=== PATIENT | female | born 1935 | race Caucasian/White ===

== ENCOUNTER 2016-09-10 08:20 | Emergency (ER) | payer OTHER ==
[~2016-09-10] VITALS: Ht 152.4 cm; Wt 69.0 kg
[~2016-09-10 08:20] MED LIST: ASPI81TA82 PO; BENZ100C4 PO; CALC600T34 PO; GUAI100S6 PO; HUMIBIDDM; LEVA750T PO; LEVO50TA4 PO; PRAV20 PO; PROT40TA PO; ZITH250T PO
[2016-09-10 08:24] VITALS: BP 153/76; PULSE 88; RESP 16; TEMP 97.8; O2SAT 96
--- NOTE | 2016-09-10 08:42 | PD ---
HPI Chief Complaint: Fall Time Seen by Provider: 08:35 Travel History International Travel<30 days: No Contact w/Intl Traveler<30days: No Traveled to known affect area: No History of Present Illness HPI The patient was seen and examined in the presence of the nurse. This patient complains of right shoulder pain. Yesterday she was gardening and tripped and fell and landed on her right shoulder. She has pain in that area. She did not strike her head. She has no head or neck pain. Severity is mild to moderate. No alleviating factors. PFSH Past Medical History Hx Anticoagulant Therapy: Yes (BABY ASA DAILY) Arthritis: Yes Cancer: No Cardiac Catheterization: Yes Cardiovascular Problems: Yes High Cholesterol: Yes Congestive Heart Failure: No Diabetes: No Diminished Hearing: No GERD: Yes Hepatitis: No Hiatal Hernia: No Hypertension: No Medical other: Yes Respiratory: Yes Immunizations Current: Yes Thyroid Disease: Yes Influenza Vaccination: Yes Past Surgical History Abdominal Surgery: Yes Cardiac Surgery: Yes (CARDIAC CATH) Coronary Artery Bypass Graft: No Gynecologic Surgery: Yes (HYSTERECTOMY ) Hysterectomy: Yes Pacemaker: No Other Surgery: Yes Family History Family Myocardial Infarction: Yes (FATHER AND BROTHER) Social History Alcohol Use: No Tobacco Use: No Substance Use: No Allergies-Medications (Allergen,Severity, Reaction): Coded Allergies: Meloxicam (Verified Allergy, Unknown, 09/10/16) Amoxicillin (Verified Adverse Reaction, Mild, diarrhea, 09/10/16) Gabapentin (Verified Adverse Reaction, Mild, shakes, 09/10/16) Reported Meds & Prescriptions Reported Meds & Active Scripts Active Reported Aleve Arthritis (Naproxen Sodium) 220 Mg Tab 220 Mg PO BID PRN Aspirin 81 (Aspirin) 81 Mg Tabdr 81 Mg PO DAILY Vitamin B12 (Cyanocobalamin) 500 Mcg Tab Unknown Dose PO DAILY Calcium (Calcium Carbonate) 600 Mg Tab 600 Mg PO DAILY Pravastatin 40 Mg Tab 40 Mg PO DAILY Pantoprazole (Pantoprazole Sodium) 40 Mg Tab 40 Mg PO DAILY Levothyroxine (Levothyroxine Sodium) 50 Mcg Tab 50 Mcg PO DAILY Review of Systems General / Constitutional: No: Fever Eyes: No: Visual changes HENT: No: Headaches Cardiovascular: No: Chest Pain or Discomfort Respiratory: No: Shortness of Breath Gastrointestinal: No: Abdominal Pain Genitourinary: No: Dysuria Musculoskeletal: Positive: Pain Skin: No Rash Neurologic: No: Weakness Psychiatric: No: Depression Endocrine: No: Polydipsia Hematologic/Lymphatic: No: Easy Bruising Physical Exam Narrative SKIN: Focused skin assessment reveals no rash or ulcers. Skin is warm and dry. Palpation shows no induration or nodules. Psych: Normal mood and affect. Normal insight and judgment. GASTROINTESTINAL: Abdomen soft, non-tender, nondistended. Positive bowel sounds. No hepato-splenomegaly, or palpable masses. No guarding. Right shoulder: Some tenderness at the humeral head is noted without bruising or swelling. Good range of motion. Neurovascularly intact right arm Data Data Last Documented VS Vital Signs Date Time Temp Pulse Resp B/P Pulse Ox O2 Delivery O2 Flow Rate FiO2 09/10/16 08:24 97.8 88 16 153/76 96 Orders Shoulder, Complete (>2vws) (09/10/16 ) [facility] Medical Decision Making Medical Screen Exam Complete: Yes Emergency Medical Condition: Yes Medical Record Reviewed: Yes Differential Diagnosis Contusion, fracture, dislocation Narrative Course I have reviewed the patient's electronic medical record. I reviewed her right shoulder x-rays which show some arthritic change without fracture or dislocation Supportive care discussed and gradual resolution is expected Diagnosis Primary Impression: Contusion of right shoulder, initial encounter Additional Instructions: The patient was advised to follow up with their physician and return if they worsen. Med/Other Pt SpecificInfo: Other Disposition: 01 DISCHARGE HOME Condition: Stable Luis Antonio Balbuena MD Sep 10, 2016 08:41
[2016-09-10] MEDS ORDERED: VITA500T49 PO (08:43)
[2016-09-10] MEDS ORDERED: ASPI-110 PO (08:43)
[2016-09-10] MEDS ORDERED: PANT40TA3 PO (08:43)
[2016-09-10] MEDS ORDERED: LEVO50TA4 PO (08:43)
[2016-09-10] MEDS ORDERED: PRAV40TA2 PO (08:43)
[2016-09-10] MEDS ORDERED: ALEV220T14 PO (08:43)
[2016-09-10] MEDS ORDERED: CALC600T25 PO (08:43)
--- NOTE | 2016-09-10 09:39 | RADRPT ---
EXAM DATE/TIME: 09/10/2016 09:09 [facility] COMPARISON: CHEST PA & LAT, April 16, 2014, 21:24. INDICATIONS : Right shoulder pain after falling yesterday. MEDICAL HISTORY : None. SURGICAL HISTORY : None. ENCOUNTER: Initial ACUITY: 2 days PAIN SCORE: 5/10 LOCATION: Right shoulder. FINDINGS: Degenerative changes are noted involving the glenohumeral joint and acromioclavicular joint. There i s no acute fracture or dislocation of the right shoulder. There is minimal spurring along the inferi or aspect of the acromion which is stable also. CONCLUSION: 1. No acute fracture or dislocation. 2. Degenerative changes involving the glenohumeral and acromioclavicular joints as well as spurring along the inferior aspect of the acromion which is unchanged. Jack Masterson MD on September 10, 2016 at 9:24 Board Certified Radiologist. This report was verified electronically.
== END 2016-09-10 10:05 | disposition home or self-care (01) ==
LOC: PHED 08:20
DX: S40.011A Contusion of right shoulder, initial encounter (principal); W01.0XXA Fall on same level from slipping, tripping and stumbling without subsequent striking against object, initial encounter; Y93.H2 Activity, gardening and landscaping
CPT/HCPCS: 73030; 99283

== ENCOUNTER 2016-10-06 06:42 | Day surgery (SDC) | payer OTHER ==
[~2016-10-06] VITALS: Ht 149.9 cm; Wt 66.6 kg
[~2016-10-06 06:42] MED LIST changes: +ALEV220T14 PO; +ASPI-110 PO; -ASPI81TA82 PO; -BENZ100C4 PO; +CALC600T25 PO; -CALC600T34 PO; -GUAI100S6 PO; -HUMIBIDDM; -LEVA750T PO; +PANT40TA3 PO; -PRAV20 PO; +PRAV40TA2 PO; -PROT40TA PO; +VITA500T49 PO; -ZITH250T PO
[2016-10-06 07:11] VITALS: BP 149/85; PULSE 86; RESP 18; TEMP 98.2; O2SAT 96
[2016-10-06] MEDS ORDERED: ceFAZolin 2 GM PREMIX 50 ML IV SCH (07:30)
[2016-10-06] MEDS ORDERED: POVIDONE IODINE 5% (ANTISEPSIS KIT) 4 APPLICATIONS EACH NARE PRN (07:30)
[2016-10-06] MEDS ORDERED: METOPROLOL TARTRATE 25 MG TAB PO PRN (07:30)
[2016-10-06] MEDS ORDERED: SODIUM CHLOR 0.9% 1000 ML INJ 1,000 ML IV SCH (07:30)
[2016-10-06] MEDS ORDERED: SODIUM CHLORID 0.9% 500 ML IV PRN (07:30)
[2016-10-06] MEDS ORDERED: LACTATED RINGER'S 1000 ML IV PRN (07:30)
[2016-10-06] MEDS ORDERED: INSULIN HUMAN REGULAR 1,000 UNITS/10 ML VIAL SQ PRN (07:30)
[2016-10-06] MEDS ORDERED: CHLORHEXIDINE GLUCONATE 2 % 1 PACK (2 CLOTHS) TOPICAL PRN (07:30)
[2016-10-06] MEDS ORDERED: ACET120S3 PO (08:16)
[2016-10-06 08:25] LABS: BASOPHIL % 0.5 % (0.0-2.0); EOSINOPHIL # 0.1 TH/MM3 (0-0.4); EOSINOPHIL % 2.8 % (0.0-4.0); HEMATOCRIT 39.5 % (35.0-46.0); HEMO FLAGS DIFF FINAL; LYMPH % 26.5 % (9.0-44.0); LYMPHOCYTE # 1.3 TH/MM3 (1.0-4.8); MEAN CELL VOLUME 92.2 FL (80.0-100.0); MEAN CORPUSCULAR HEMOGLOBIN 30.4 PG (27.0-34.0); MONO % 9.5 % (0.0-8.0); NEUT % 60.7 % (16.0-70.0); PLATELET COUNT 163 TH/MM3 (150-450); RED BLOOD COUNT 4.28 MIL/MM3 (4.00-5.30); RED CELL DISTRIBUTION WIDTH 14.9 % (11.6-17.2); WHITE BLOOD COUNT 4.9 TH/MM3 (4.0-11.0)
[2016-10-06 08:40] LABS: BICARBONATE 27.8 MEQ/L (21.0-32.0); POTASSIUM 4.3 MEQ/L (3.5-5.1)
[2016-10-06 08:43] LABS: PROTHROMBIN TIME - PATIENT 10.8 SEC (9.8-11.6)
[2016-10-06 08:49] LABS: APTT (PATIENT) 26.4 SEC (24.3-30.1)
[2016-10-06] MEDS ORDERED: BUPIVACAINE HCL PF 0.75% 30 ML VIAL ONE (09:50)
--- NOTE | 2016-10-06 11:00 | PD.RAD ---
Post Procedure Progress Note Pre Procedure Diagnosis: (1) Vertebral compression fracture Post Procedure Diagnosis: (1) Vertebral compression fracture Procedure Date: Oct 06, 2016 Supervising Radiologist: Quinton Patton JR Proceduralist/Assist: RT Pam(R), RT Charity(R) Anesthesia: General Plan of Activity Patient to Unit: PACU Patient Condition: Good See PACS Report for procedural detail/treatment Spinal Procedure Kyphoplasty T12 Findings: Successful T12 kyphoplasty. Plan Patient has Tylenol with codeine for pain. F/U with IR in 2-3 weeks or sooner if any problems. Jr. Abdi,Quinton Crawford MD Oct 06, 2016 11:00
[2016-10-06] MEDS ORDERED: *morphine SULFATE 8 MG/ML PERIprocedure ONLY ONE (11:11)
--- NOTE | 2016-10-06 11:24 | RADRPT ---
EXAM DATE/TIME: 10/06/2016 09:14 [facility] COMPARISON: No previous studies available for comparison. INDICATIONS : Patient with T12 compression fracture in need of kyphoplasty. The patient had a fall over one month a go. Patient is not tolerating medical management. MEDICAL HISTORY : HLD, GERD, Hypothyroidism, Pulmonary valve regurgitation, Arthritis, DDD, Osteopenia SURGICAL HISTORY : Bilateral total hip replacement, Cardiac cath, Colonoscopy ENCOUNTER: Initial ACUITY: 1 month PAIN SCORE: 0/10 FLUORO TIME: 9.3 minutes IMAGE SERIES: 4 LEVEL: T12 Prophylactic antibiotics were administered with appropriate pre-procedure timing. Vancomycin within 2 hrs of procedure, Ancef (or alternative) within 1 hr of procedure. DEVICE: 1. 3 cc AVAMax bone cement Anesthesia and pain control was provided by the Anesthesia department. PROCEDURE : 1. Fluoroscopically-guided kyphoplasty. 2. Anesthesia as supplied by the Anesthesiology Department.. The risks, benefits and alternatives to the procedure were explained and verbal and written consent w as obtained. The site was prepped in sterile fashion. Full sterile technique was used, including ca p, mask, sterile gloves and gown and a large sterile sheet. Hand hygiene and 2% chlorhexidine and/or betadine/alcohol prep was utilized per protocol for cutaneous antisepsis. The skin and subcutaneous tissues were infiltrated with local anesthetic solution. Marcaine was utilized for parosteal numbing of the left pedicle. With fluoroscopic guidance a left unilateral transpedicular approach was gained to the vertebral body . Kyphoplasty was performed with cavity creation utilizing a balloon. The prescribed cement volume was placed under fluoroscopic control. Good filling of the vertebral body was noted. There is some ex tra osseous extension of the cement within the left paraspinal soft tissues. Post procedure images de monstrate cement confined to the vertebral body. Anesthesia as supplied by the Anesthesiology Department. Please see their report separately. The ramirez ent tolerated the procedure well and there were no complications. The patient was sent to post anest hesia recovery in stable condition. CONCLUSION: Uncomplicated T12 kyphoplasty as above. Quinton Patton Jr., MD on October 06, 2016 at 11:19 Board Certified Radiologist. This report was verified electronically.
[2016-10-06] MEDS ORDERED: *diphenhydrAMINE HCL 50 MG/ML VIAL PERIprocedural Use ONLY ONE (11:40)
[2016-10-06] MEDS ORDERED: DO NOT ADM ANY ANTICOAGULANT DRUGS PRN (11:45)
[2016-10-06] MEDS ORDERED: *HYDROmorphone PF 1 MG VIAL PERIprocedural Use ONLY ONE (12:02)
[2016-10-06 12:45] VITALS: BP 134/77; PULSE 81; RESP 18; TEMP 97.7; O2SAT 97
[2016-10-06 13:00] VITALS: BP 143/62; PULSE 71; RESP 18; O2SAT 97
[2016-10-06 13:15] VITALS: BP 152/79; PULSE 88; RESP 16; O2SAT 92
--- NOTE | 2016-10-06 13:43 | EKG ---
Date Performed: 10/06/2016 Time Performed: 07:43:30 PTAGE: 81 years EKG: Sinus rhythm NORMAL ECG Compared to prior tracing no significant change PREVIOUS TRACING : 04/16/2014 21.10 DOCTOR: Carin Mccartney Interpretating Date/Time 10/06/2016 13:39:18
== END 2016-10-06 15:10 | disposition home or self-care (01) ==
LOC: HROP 06:42 → HRIP 06:44 → HROP 15:10
PROVIDERS: ATTEND Family Medicine
DX: S22.080A Wedge compression fracture of T11-T12 vertebra, initial encounter for closed fracture (principal); K21.9 Gastro-esophageal reflux disease without esophagitis; M19.90 Unspecified osteoarthritis, unspecified site; Z01.810 Encounter for preprocedural cardiovascular examination; Z01.818 Encounter for other preprocedural examination
CPT/HCPCS: 22513; 80048; 85025; 85610; 85730; 93005; J1170; J1200; J2270; J3010; J7030